=== PATIENT | male | born 1950 | race Caucasian/White ===

== ENCOUNTER 2017-06-03 01:32 | Emergency (ER) | payer OTHER ==
[~2017-06-03] VITALS: Ht 182.9 cm; Wt 81.7 kg
--- NOTE | ~2017-06-03 | EKG ---
[address] [address] ELECTROCARDIOGRAM REPORT Name: SACHA SOLIS Room #: DEP Isadora#: [id number] Admission: 06/03/17 Attend Phys: Discharge: 06/03/17 Date of : 46 Report #: [id number] THIS REPORT FOR: //name// [facility] ED Test Date: 2017-06-03 Test Time: 02:45:17 Pat Name: SACHA SOLIS Department: Room: Gender: Quality Assurance Supervisor Trim: AQUILINO : 1950 Requested By: Edwardo Ortega Order Number: [id number] MD: Tj Lara Measurements Intervals [place] Rate: 81 P: 67 MT: 164 QRS: 35 QRSD: 88 T: 22 QT: 403 QTc: 468 Interpretive Statements Sinus rhythm No previous ECG available for comparison Electronically Signed On 06-03-2017 8:30:39 FINANCIAL REPORTING ANALYST by Tj Lara [email or web address] <ELECTRONICALLY SIGNED> By: Tj Lara MD 06/03/17 0830 [id number] Tj Lara MD /WISAM
[~2017-06-03 01:32] MED LIST: APHEN325 MG PO; ASPIRIN81 M2 PO; DILANTIN50 MG PO; FISH OIL 1,001000 M1 PO; FOLIC ACID1 MG PO; KEPPRA 500 MG500 M1 PO; LEVOTHYROXIN0.025 MG PO; MAALOX REGULAR600 MG; MAALOX525 MG/15 PO; MOM PO; MULTIVITAMINS1 EAC7 PO; MUPIROCIN22 GM TOP; ONE DAILY COMP1 EAC1 PO; PHENYTOIN SODI100 M3 PO; PRIMIDONE 250M250 M1 PO; QUETIAPINE FUM200 MG PO; SEROQUEL 25 MG25 M1 PO; SYNTHROID75 MCG PO; VITAMIN D1000 UNI1 PO; ZOFRAN ODT4 MG PO
[2017-06-03] MEDS ORDERED: RISPERDAL 1 MG T1 MG PO (01:55)
[2017-06-03] MEDS ORDERED: BUSPIRONE HCL10 MG PO (01:56)
[2017-06-03 02:16] LABS: ABSOLUTE NEUTROPHILS 3.6 thou/uL (1.4-8.2); BASOPHILS 0.4 % (0.0-2.0); EOSINOPHILS 0.1 % (0.0-3.0); HEMATOCRIT 35.5 % (42.0-52.0); HEMOGLOBIN 12.1 gm/dL (14.0-18.0); LYMPHOCYTES 15.9 % (24.0-44.0); MCH 30.5 pg (26.0-34.0); MCHC 34.1 g/dL (28.0-37.0); MCV 89.2 fL (80.0-100.0); MONOCYTES 10.9 % (1.0-8.0); PLATELET COUNT 179 thou/uL (150-400); POLYS 72.7 % (36.0-66.0); RBC 3.98 mil/uL (4.50-6.00); RDW 12.7 % (10.5-14.5)
[2017-06-03 02:17] LABS: MANUAL DIFF NO
[2017-06-03 02:21] LABS: ANION GAP 12 mmol/L (7-16); BUN 19 mg/dL (7-18); CALCIUM 8.5 mg/dL (8.5-10.1); CHLORIDE 108 mmol/L (98-107); CO2 24 mmol/L (21-32); CREATININE 0.8 mg/dL (0.7-1.3); GLUCOSE 169 mg/dL (74-106); POTASSIUM 3.6 mmol/L (3.5-5.1); SODIUM 144 mmol/L (136-145)
[2017-06-03 02:24] LABS: URINE BILIRUBIN NEGATIVE (Negative); URINE BLOOD NEGATIVE (Negative); URINE COLOR YELLOW; URINE GLUCOSE-RANDOM* NEGATIVE (Negative); URINE KETONES 1+ (Negative); URINE LEUKOCYTES-REFLEX NEGATIVE (Negative); URINE PROTEIN (DIPSTICK) TRACE (Negative); URINE SPECIFIC GRAVITY 1.025 (1.003-1.035)
[2017-06-03 02:30] LABS: ALBUMIN 3.5 g/dL (3.4-5.0); ALKALINE PHOSPHATASE 124 U/L (46-116); SGOT 34 U/L (15-37); SGPT 18 U/L (30-65); TOTAL BILIRUBIN 0.3 mg/dL (<0.1-1.0); TOTAL PROTEIN 6.7 g/dL (6.4-8.2); TROPONIN-I < 0.04 ng/mL (<0.06)
[2017-06-03 02:32] LABS: AMP/METHAMP Negative (Negative); BARBITURATES POSITIVE (Negative); BENZODIAZEPINES Negative (Negative); COCAINE Negative (Negative); METHADONE Negative (Negative); OPIATES Negative (Negative); PCP Negative (Negative); THC Negative (Negative)
== END 2017-06-03 05:07 | disposition home or self-care (01) ==
LOC: ER 01:32
PROVIDERS: Emergency Medicine
DX: G80.9 Cerebral palsy, unspecified (principal); G40.802 Other epilepsy, not intractable, without status epilepticus; F03.90 Unspecified dementia, unspecified severity, without behavioral disturbance, psychotic disturbance, mood disturbance, and anxiety

== ENCOUNTER 2018-06-06 10:13 | Emergency (ER) | payer OTHER ==
[~2018-06-06] VITALS: Ht 165.1 cm; Wt 74.8 kg
[~2018-06-06 10:13] MED LIST changes: +BUSPIRONE HCL10 MG PO; +RISPERDAL 1 MG T1 MG PO
[2018-06-06] MEDS ORDERED: FOLIC ACID1 MG PO (10:42)
[2018-06-06 10:43] LABS: ABSOLUTE NEUTROPHILS 6.2 thou/uL (1.4-8.2); BASOPHILS 0.4 % (0.0-2.0); EOSINOPHILS 0.1 % (0.0-3.0); HEMATOCRIT 38.5 % (42.0-52.0); HEMOGLOBIN 13.1 gm/dL (14.0-18.0); LYMPHOCYTES 7.8 % (24.0-44.0); MCH 30.5 pg (26.0-34.0); MCHC 34.1 g/dL (28.0-37.0); MCV 89.6 fL (80.0-100.0); MONOCYTES 4.1 % (1.0-8.0); PLATELET COUNT 173 thou/uL (150-400); POLYS 87.6 % (36.0-66.0); RDW 13.5 % (10.5-14.5); WBC 7.1 thou/uL (4.0-11.0)
[2018-06-06] MEDS ORDERED: DILANTIN100 MG PO (10:44)
[2018-06-06 10:53] LABS: CALCIUM 9.4 mg/dL (8.5-10.1); CREATININE 0.7 mg/dL (0.7-1.3); POTASSIUM 3.8 mmol/L (3.5-5.1)
[2018-06-06 11:29] LABS: URINE BILIRUBIN NEGATIVE (Negative); URINE BLOOD NEGATIVE (Negative); URINE CLARITY SL CLOUDY; URINE COLOR YELLOW; URINE GLUCOSE-RANDOM* NEGATIVE (Negative); URINE KETONES NEGATIVE (Negative); URINE PROTEIN (DIPSTICK) NEGATIVE (Negative); URINE SPECIFIC GRAVITY 1.015 (1.005-1.035); URINE UROBILINOGEN 0.2 E.U./dl (0.2-1.0)
[2018-06-06 11:30] LABS: URINE LEUKOCYTES-REFLEX 1+ (Negative); URINE NITRITE-REFLEX POSITIVE (Negative)
[2018-06-06 11:39] LABS: CASTS None Seen /LPF (None Seen); SQUAMOUS None Seen /LPF (0-3); TRIPLE PHOSPHATE CRYSTALS 4-10 Moderate /LPF (None Seen); URINE RBC None Seen /HPF (0-2); URINE WBC-REFLEX 6-15 Few /HPF (0-5)
[2018-06-06] MEDS ORDERED: KEFLEX500 M2 PO (11:57)
[2018-06-06 15:14] VITALS: BP 101/64
== END 2018-06-06 15:15 | disposition home or self-care (01) ==
LOC: ER 10:13
PROVIDERS: Emergency Medicine
DX: N39.0 Urinary tract infection, site not specified (principal); R56.9 Unspecified convulsions; F03.90 Unspecified dementia, unspecified severity, without behavioral disturbance, psychotic disturbance, mood disturbance, and anxiety

== ENCOUNTER 2018-11-18 08:41 | Emergency (ER) | payer OTHER ==
[~2018-11-18] VITALS: Ht 167.6 cm; Wt 49.9 kg
[~2018-11-18 08:41] MED LIST changes: +DILANTIN100 MG PO; +KEFLEX500 M2 PO
[2018-11-18] MEDS ORDERED: MAPAP325 MG PO (08:52)
[2018-11-18] MEDS ORDERED: REMERON15 MG PO (08:53)
[2018-11-18 08:59] LABS: ABSOLUTE NEUTROPHILS 10.3 thou/uL (1.4-8.2); BASOPHILS 0.5 % (0.0-2.0); EOSINOPHILS 0.1 % (0.0-3.0); HEMATOCRIT 33.8 % (42.0-52.0); HEMOGLOBIN 11.2 gm/dL (14.0-18.0); LYMPHOCYTES 5.7 % (24.0-44.0); MCH 30.1 pg (26.0-34.0); MCHC 33.2 g/dL (28.0-37.0); MCV 90.7 fL (80.0-100.0); MONOCYTES 3.3 % (1.0-8.0); PLATELET COUNT 190 thou/uL (150-400); POLYS 90.4 % (36.0-66.0); RBC 3.72 mil/uL (4.50-6.00); RDW 13.5 % (10.5-14.5); WBC 11.4 thou/uL (4.0-11.0)
[2018-11-18 09:03] LABS: CREATININE 0.7 mg/dL (0.7-1.3); POTASSIUM 4.1 mmol/L (3.5-5.1)
[2018-11-18 09:39] LABS: URINE BILIRUBIN NEGATIVE (Negative); URINE BLOOD NEGATIVE (Negative); URINE CLARITY CLEAR; URINE COLOR YELLOW; URINE GLUCOSE-RANDOM* NEGATIVE (Negative); URINE KETONES NEGATIVE (Negative); URINE LEUKOCYTES-REFLEX NEGATIVE (Negative); URINE NITRITE-REFLEX NEGATIVE (Negative); URINE PROTEIN (DIPSTICK) NEGATIVE (Negative); URINE UROBILINOGEN 0.2 E.U./dl (0.2-1.0)
[2018-11-18 10:36] VITALS: BP 118/56
== END 2018-11-18 11:43 | disposition home or self-care (01) ==
LOC: ER 08:41
PROVIDERS: Emergency Medicine
DX: S00.01XA Abrasion of scalp, initial encounter (principal); G40.909 Epilepsy, unspecified, not intractable, without status epilepticus; G80.9 Cerebral palsy, unspecified; F03.90 Unspecified dementia, unspecified severity, without behavioral disturbance, psychotic disturbance, mood disturbance, and anxiety; Z79.899 Other long term (current) drug therapy; W18.09XA Striking against other object with subsequent fall, initial encounter; Y93.89 Activity, other specified; Y92.89 Other specified places as the place of occurrence of the external cause; Y99.8 Other external cause status